=== PATIENT | male | born 1970 | race Caucasian/White ===

== ENCOUNTER 2016-06-09 15:17 | Emergency (ER) | payer BC ==
[2016-06-09 16:46] VITALS: BP 130/89
--- NOTE | 2016-06-09 17:41 | RAD ---
Indication: Right shoulder pain. 3 views of the right shoulder demonstrate AC joint arthritis. No fracture is noted. Bone or joint abnormality is noted. IMPRESSION: No fracture of the right shoulder is noted.
--- NOTE | 2016-06-09 18:25 | UC ---
Shoulder Pain HPI - HPI Summary HPI Summary: HISTORY OF RIGHT SHOULDER TENDONITIS SINCE ADOLESCENCE. FOUR DAYS TENDONITIS HAS BEEN WORSENING ESPECIALLY WITH LATERAL MOVEMENT. NO SPECIFIC INJURY NOTED. - History of Current Complaint Chief Complaint: UCUpperExtremity Stated Complaint: ARM INJURY Time Seen by Provider: 06/09/16 16:42 Hx Obtained From: Patient Onset/Duration: Gradual Onset, Lasting Weeks, Worse Since - LAST FOUR DAYS Timing: Days Severity Initially: Mild Severity Currently: Severe Location Of Pain: Is Discrete @ - RIGHT SHOUDLER Pain Intensity: 7 Pain Scale Used: 0-10 Numeric Character: Dull, Aching, Spasmodic, Stiffness Aggravating Factor(s): Movement, Lifting, Flexion, Extension, External Rotation Alleviating Factor(s): Rest, Ice Related History: Dominant Hand Right - Risk Factors Non-Orthopedic Risk Factor: Negative DVT Risk Factors: Negative - Allergies/Home Medications Allergies/Adverse Reactions: Allergies Allergy/AdvReac Type Severity Reaction Status Date / Time No Known Allergies Allergy Verified 02/18/16 11:44 PMH/Surg Hx/FS Hx/Imm Hx Previously Healthy: Yes Endocrine History Of: Denies: Diabetes, Thyroid Disease Cardiovascular History Of: Reports: Hypertension Denies: Cardiac Disorders, Pacemaker/ICD, Congestive Heart Failure, Deep Vein Thrombosis Respiratory History Of: Denies: COPD, Asthma, Pneumonia, Pulmonary Embolism GI/ History Of: Reports: Kidney Stones, Renal Disease - Dx'd with IGA nephropathy; dialysis in 2007; dec 2009 right transplant Denies: Ulcer, Gastrointestinal Bleed, Gall Bladder Disease Neurological History Of: Denies: TIA, CVA, Dementia, Seizures, Migraine Psychological History Of: Reports: Anxiety, Depression Denies: Bipolar Disorder, Schizophrenia Cancer History Of: Denies: Lung Cancer Other History Of: Negative For: Anticoagulant Therapy - Surgical History Surgical History: Yes Surgery Procedure, Year, and Place: kidney transplant, 2009. Fistula, July 2008. Hemo-catheter, January 2008. Peritoneal catheter January 2008. Kidney biopsy 2006. - Family History Known Family History: Negative: Renal Disease, Blood Disorder - Social History Occupation: Employed Full-time Lives: With Family Alcohol Use: Occasionally Alcohol Amount: 5-7 DRINKS/WEEK Substance Use Type: Marijuana Smoking Status (MU): Former Smoker Type: Cigarettes Amount Used/How Often: 1/2 ppd Have You Smoked in the Last Year: No When Did the Patient Quit Smoking/Using Tobacco: december 2013 - Immunization History Most Recent Tetanus Shot: 2011 Vaccination Up to Date: Yes Review of Systems Constitutional: Negative Skin: Negative Eyes: Negative ENT: Negative Respiratory: Negative Cardiovascular: Negative Gastrointestinal: Negative Genitourinary: Negative Motor: Negative Neurovascular: Negative Musculoskeletal: Arthralgia, Decreased ROM, Myalgia Neurological: Negative Psychological: Negative All Other Systems Reviewed And Are Negative: Yes Physical Exam Triage Information Reviewed: Yes Appearance: Well-Appearing, Well-Nourished, Pain Distress Vital Signs: Initial Vital Signs Temp 98.7 F 06/09/16 16:42 Pulse 64 06/09/16 16:42 Resp 18 06/09/16 16:42 BP 130/89 06/09/16 16:42 Pulse Ox 98 06/09/16 16:42 Vital Signs Reviewed: Yes Eye Exam: Normal ENT Exam: Normal ENT: Positive: Normal ENT inspection, Hearing grossly normal, TMs normal Dental Exam: Normal Neck exam: Normal Neck: Positive: Supple, Nontender, No Lymphadenopathy Respiratory Exam: Normal Respiratory: Positive: Chest non-tender, Lungs clear, Normal breath sounds, No respiratory distress, No accessory muscle use, Respiratory distress Cardiovascular Exam: Normal Cardiovascular: Positive: RRR, No Murmur, Pulses Normal Abdominal Exam: Normal Abdomen Description: Positive: Nontender, No Organomegaly Musculoskeletal: Positive: No Edema, Strength Limited @ - RIGHT SHOULDER LATERAL EXTENSION, ROM Limited @ - RIGHT SHOULDER LATERAL EXTENSION Neurological Exam: Normal Psychological Exam: Normal Skin Exam: Normal Shoulder Course/Dx - Differential Dx/Diagnosis Differential Diagnosis/HQI/PQRI: Fracture (Closed), Sprain, Strain Provider Diagnoses: RIGHT SHOUDLER TENDONITIS. RIGHT AC JOINT ARTHRITIS Discharge - Discharge Plan Condition: Stable Disposition: HOME Prescriptions: HYDROcodone/ACETAMIN 5-325 MG* [[place] 5-325 TAB*] 1 tab PO Q8H PRN #12 tab MDD THREE TABS PRN Reason: Pain Patient Education Materials: Osteoarthritis (ED), Tendinitis (ED), Shoulder Pain (ED) Referrals: Deneen Chung MD [Medical Doctor] - Carroll Pollard MD [Primary Care Provider] - Additional Instructions: PHYSICAL THERAPY REFERRAL: You have been prescribed physical therapy. Treatments may include stretching, exercise, application of heat or cold, and other modalities. After an injury, PT can reduce swelling and pain. In recovery, PT is used to restore mobility and strength. Your specific treatment goals are: Reduction of Swelling (EGS, US, ice as needed) ___x__ Pain Reduction (EGS, US, ice as needed) TENS Pack Fitting and Instruction Wound Hydrotherapy ___x__ Preservation of Mobility ___x__ Synagogue of Mobility ____x_ Strength Synagogue ____x_ Work or Sports Hardening This instruction sheet also serves as your PHYSICAL THERAPY REFERRAL! Please take it with you to the therapist, so he/she will be aware of your diagnosis and treatment plan. You may see the physical therapist of your choice for these treatments, but may wish to check with your insurance to be sure the provider you select is covered. It's important to see the doctor to whom you have been referred for follow up.
== END 2016-06-09 18:07 | disposition home or self-care (01) ==
LOC: UCEAST 15:17
DX: M19.011 Primary osteoarthritis, right shoulder (principal); M75.91 Shoulder lesion, unspecified, right shoulder; Z94.0 Kidney transplant status; F10.99 Alcohol use, unspecified with unspecified alcohol-induced disorder; Z87.891 Personal history of nicotine dependence
CPT/HCPCS: 99213; G0463

== ENCOUNTER 2016-12-10 09:02 | Emergency (ER) | payer BC ==
[2016-12-10 09:15] VITALS: BP 117/81
--- NOTE | 2016-12-10 15:38 | UC ---
Jessie Campos Alfonso, scribed for Dariela Chong MD on 12/10/16 at 0937 . General HPI - HPI Summary HPI Summary: This patient is a 46 year old M presenting to [facility] with a chief complaint of a cold since last week. He reports the CC is worse since two days ago. Symptoms alleviated by nothing. Patient reports productive cough (green phlegm), and sinus congestion. Patient denies diarrhea, and ear pain. PMHx of kidney transplant 2009. Patients medications reviewed this visit. Patients allergies reviewed this visit. - History of Current Complaint Chief Complaint: UCRespiratory Stated Complaint: RESP ISSUE Time Seen by Provider: 12/10/16 09:25 Hx Obtained From: Patient Onset/Duration: Sudden Onset, Lasting Weeks - 1, Worse Since - 2 days Timing: Constant Onset Severity: Moderate Current Severity: Moderate Character: "cold" Alleviating: Nothing Associated Signs & Symptoms: Positive: Other - Patient reports productive cough (green phlegm), and sinus congestion. Patient denies diarrhea, and ear pain. - Allergy/Home Medications Allergies/Adverse Reactions: Allergies Allergy/AdvReac Type Severity Reaction Status Date / Time No Known Allergies Allergy Verified 12/10/16 09:10 Home Medications: Home Medications [id number] [Theraflu Cold & Cough 10-20-20 mg] 12/10/16 [ History] PMH/Surg Hx/FS Hx/Imm Hx Other History Of: Negative For: Anticoagulant Therapy - Surgical History Surgical History: Yes Surgery Procedure, Year, and Place: kidney transplant, 2009. Fistula, July 2008. Hemo-catheter, January 2008. Peritoneal catheter January 2008. Kidney biopsy 2006. - Family History Known Family History: Negative: Renal Disease, Blood Disorder - Social History Alcohol Use: None Alcohol Amount: 5-7 DRINKS/WEEK Substance Use Type: Marijuana Smoking Status (MU): Former Smoker Type: Cigarettes Amount Used/How Often: 1/2 ppd Have You Smoked in the Last Year: No When Did the Patient Quit Smoking/Using Tobacco: december 2013 - Immunization History Most Recent Tetanus Shot: 2010 Vaccination Up to Date: Yes Review of Systems Constitutional: Negative Skin: Negative Eyes: Negative ENT: Sinus Congestion, Other - Negative ear ache. Respiratory: Cough Cardiovascular: Negative Gastrointestinal: Negative, Other - Negative diarrhea. Genitourinary: Negative Motor: Negative Neurovascular: Negative Musculoskeletal: Negative Neurological: Negative Psychological: Negative All Other Systems Reviewed And Are Negative: Yes Physical Exam Triage Information Reviewed: Yes Appearance: Well-Nourished Vital Signs: Initial Vital Signs Temp 98 F 12/10/16 09:12 Pulse 81 12/10/16 09:12 Resp 16 12/10/16 09:12 BP 117/81 12/10/16 09:12 Pulse Ox 92 12/10/16 09:12 Vital Signs Reviewed: Yes Eye Exam: Normal ENT: Positive: Other: - Normal TM. Uvula slight edematous. Airway intact. Neck exam: Normal Neck: Positive: No Lymphadenopathy Respiratory Exam: Normal Respiratory: Positive: Chest non-tender, Wheezing - expiratory wheezing,mild, Other: - no dyspnea, no tachypnea, normal respiratory rate Cardiovascular Exam: Normal Cardiovascular: Positive: RRR, No Murmur, Pulses Normal, Brisk Capillary Refill , Other: - good general skin color, good capillary refill Abdomen Description: Positive: Nontender, No Organomegaly, Soft Bowel Sounds: Positive: Present Musculoskeletal Exam: Normal Musculoskeletal: Positive: Strength Intact Neurological Exam: Normal Psychological: Positive: Age Appropriate Behavior Skin Exam: Normal Course/Dx - Course Course Of Treatment: This patient is a 46 year old M presenting to [facility] with a chief complaint of a cold since last week. He reports the CC is worse since two days ago. Symptoms alleviated by nothing. Patient reports productive cough ( green phlegm), and sinus congestion. Patient denies diarrhea, and ear pain. PMHx of kidney transplant 2009. Patients medications reviewed this visit. Patients allergies reviewed this visit. Pt instructed to up with primary care provider within two weeks for high blood pressure noted today at 117/81. 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 He will take a single dose prednisone prior to event. Will use albuterol as needed (recommend at least 2x / day while sick). Rx azithromycin. Patient will be discharged with prescription and follow up from PCP. The patient is agreeable with this plan. - Differential Dx - Multi-Symptom Provider Diagnoses: Acute bronchitis with wheezing Discharge - Discharge Plan Condition: Stable Disposition: HOME Prescriptions: Albuterol HFA INHALER* [Ventolin HFA Inhaler*] 1 puff INH Q4H PRN #1 mdi PRN Reason: Wheezing Azithromyxin SHRAVAN (NF) [Z-Shravan (Zithromax) 250 mg tabs #6] 2 tab PO .TODAY, THEN 1 DAILY #6 tab predniSONE TAB* [Deltasone TAB*] 20 mg PO DAILY #3 tab Patient Education Materials: Acute Bronchitis (ED) Referrals: Carroll Pollard MD [Primary Care Provider] - 1 Week Additional Instructions: Follow up with your primary care provider within two weeks for high blood pressure noted today at 117/81. The documentation as recorded by the Jessie remy Alfonso accurately reflects the service I personally performed and the decisions made by me, Dariela Chong MD.
== END 2016-12-10 10:01 | disposition home or self-care (01) ==
LOC: UCEAST 09:02
DX: J20.9 Acute bronchitis, unspecified (principal); F12.10 Cannabis abuse, uncomplicated
CPT/HCPCS: 99212; G0463

== ENCOUNTER 2017-02-12 10:11 | Emergency (ER) | payer BC ==
[2017-02-12 10:23] VITALS: BP 103/71
--- NOTE | 2017-02-12 10:55 | UC ---
Respiratory Complaint HPI - HPI Summary HPI Summary: Cough and chest congestion similar symptoms to a couple of months ago when DX with Bronchitis improved with Zithromax and albuterol - History of Current Complaint Chief Complaint: UCGeneralIllness Stated Complaint: COLD,COUGH Time Seen by Provider: 02/12/17 10:45 Hx Obtained From: Patient Onset/Duration: Gradual Onset, Lasting Weeks - 2, Still Present Timing: Constant Severity Initially: Mild Severity Currently: Moderate Pain Intensity: 6 Pain Scale Used: 0-10 Numeric Character: Cough: Productive Aggravating Factors: Nothing Alleviating Factors: Nothing Associated Signs And Symptoms: Positive: Negative - Allergies/Home Medications Allergies/Adverse Reactions: Allergies Allergy/AdvReac Type Severity Reaction Status Date / Time No Known Allergies Allergy Verified 02/12/17 10:16 PMH/Surg Hx/FS Hx/Imm Hx Previously Healthy: No Cardiovascular History: Hypertension Other History Of: Negative For: Anticoagulant Therapy - Surgical History Surgical History: Yes Surgery Procedure, Year, and Place: kidney transplant, 2009. Fistula, July 2008. Hemo-catheter, January 2008. Peritoneal catheter January 2008. Kidney biopsy 2006. - Family History Known Family History: Positive: None Negative: Renal Disease, Blood Disorder - Social History Occupation: Employed Full-time Lives: With Family Alcohol Use: Weekly Alcohol Amount: 5-7 DRINKS/WEEK Substance Use Type: Marijuana Substance Use Comment - Amount & Last Used: occasionally Smoking Status (MU): Current Some Day Smoker Type: Cigarettes Amount Used/How Often: 1/2 ppd Have You Smoked in the Last Year: No When Did the Patient Quit Smoking/Using Tobacco: december 2013 - Immunization History Most Recent Influenza Vaccination: 2016 Most Recent Tetanus Shot: 2010 Vaccination Up to Date: Yes Review of Systems Constitutional: Negative Skin: Negative Eyes: Negative ENT: Negative Respiratory: Cough Cardiovascular: Negative Gastrointestinal: Negative Genitourinary: Negative Motor: Negative Neurovascular: Negative Musculoskeletal: Negative Neurological: Negative Psychological: Negative Is Patient Immunocompromised?: No All Other Systems Reviewed And Are Negative: Yes Physical Exam Triage Information Reviewed: Yes Appearance: No Pain Distress, Well-Nourished, Ill-Appearing - mild Vital Signs: Initial Vital Signs Temp 98.6 F 02/12/17 10:18 Pulse 63 02/12/17 10:18 Resp 16 02/12/17 10:18 BP 103/71 02/12/17 10:18 Pulse Ox 99 02/12/17 10:18 Vital Signs Reviewed: Yes Eye Exam: Normal Eyes: Positive: Conjunctiva Clear ENT Exam: Normal ENT: Positive: Normal ENT inspection, Hearing grossly normal, Pharynx normal, TMs normal. Negative: Nasal congestion, Nasal drainage, Trismus, Muffled/ hoarse voice Dental Exam: Normal Neck exam: Normal Neck: Positive: Supple, Nontender Respiratory Exam: Normal Respiratory: Positive: Chest non-tender, Lungs clear, Normal breath sounds, No respiratory distress, No accessory muscle use Cardiovascular Exam: Normal Cardiovascular: Positive: RRR, No Murmur, Pulses Normal, Brisk Capillary Refill Musculoskeletal Exam: Normal Musculoskeletal: Positive: Strength Intact, ROM Intact Neurological Exam: Normal Neurological: Positive: Alert, Muscle Tone Normal Psychological Exam: Normal Skin Exam: Normal UC Diagnostic Evaluation - Laboratory O2 Sat by Pulse Oximetry: 99 Respiratory Course/Dx - Course Course Of Treatment: Continue OTC symptoms relief, albuterol q4-6 hours prn cough, start antibiodics if no relief in 3-5 days - Differential Dx/Diagnosis Provider Diagnoses: Acute Bronchititis Discharge - Discharge Plan Condition: Stable Disposition: HOME Prescriptions: Albuterol HFA INHALER* [Ventolin HFA Inhaler*] 2 puff INH Q4H PRN #1 mdi PRN Reason: cough Azithromycin TAB* [Zithromax TAB (Z-DAVID) 250 mg #6 tabs] 2 tab PO .TODAY, THEN 1 DAILY #1 david Patient Education Materials: Acute Bronchitis (ED), Acute Cough (ED) Referrals: Carroll Pollard MD [Primary Care Provider] - If Needed Additional Instructions: May resolve with out use of antibiotics---Please use albuterol and otc medications prior to starting antibiotics
== END 2017-02-12 11:15 | disposition home or self-care (01) ==
LOC: UCEAST 10:11
DX: J20.9 Acute bronchitis, unspecified (principal); F17.210 Nicotine dependence, cigarettes, uncomplicated; I10 Essential (primary) hypertension; F12.10 Cannabis abuse, uncomplicated
CPT/HCPCS: 99212; G0463

== ENCOUNTER 2017-05-26 13:17 | Emergency (ER) | payer BC ==
[2017-05-26 13:45] VITALS: BP 120/79
--- NOTE | 2017-05-26 13:52 | UC ---
Lower Extremity/Ankle HPI - HPI Summary HPI Summary: Pt presents with right pinky toe pain that began this morning. He tells me that he has been sick with cold symptoms recently, so he took some nyquill last night and this usually "knocks him out". He doesn't recall hitting or stubbing his toe, but thinks it's possible and just doesn't remember. He is ambulating without assistance, but with pain. - History of Current Complaint Hx Obtained From: Patient Onset/Duration: Sudden Onset Severity Initially: Moderate Severity Currently: Moderate Pain Intensity: 7 Pain Scale Used: 0-10 Numeric Aggravating Factor(s): Standing, Ambulation <Brennan Sow - Last Filed: 05/26/17 14:10> <Lili Del Rosario - Last Filed: 05/26/17 14:31> - History of Current Complaint Chief Complaint: UCLowerExtremity Stated Complaint: TOE INJURY Time Seen by Provider: 05/26/17 13:36 - Allergies/Home Medications Allergies/Adverse Reactions: Allergies Allergy/AdvReac Type Severity Reaction Status Date / Time No Known Allergies Allergy Verified 05/26/17 13:35 PMH/Surg Hx/FS Hx/Imm Hx Previously Healthy: Yes Cardiovascular History: Cardiac Disease, Hypertension Other History Of: Negative For: Anticoagulant Therapy - Surgical History Surgical History: Yes Surgery Procedure, Year, and Place: kidney transplant, 2009. Fistula, July 2008. Hemo-catheter, January 2008. Peritoneal catheter January 2008. Kidney biopsy 2006. - Family History Known Family History: Positive: None Negative: Renal Disease, Blood Disorder - Social History Alcohol Use: Weekly Alcohol Amount: 5-7 DRINKS/WEEK Substance Use Type: Marijuana Substance Use Comment - Amount & Last Used: occasionally Smoking Status (MU): Current Some Day Smoker Type: Cigarettes Amount Used/How Often: 5-7 cig/ day Have You Smoked in the Last Year: No When Did the Patient Quit Smoking/Using Tobacco: december 2013 - Immunization History Most Recent Influenza Vaccination: 2016 Most Recent Tetanus Shot: 2010 Vaccination Up to Date: Yes <Brennan Sow - Last Filed: 05/26/17 14:10> Review of Systems Constitutional: Negative Skin: Negative Respiratory: Negative Cardiovascular: Negative Gastrointestinal: Negative Neurovascular: Negative Musculoskeletal: Other: - Right pinky toe pain Neurological: Negative Psychological: Negative All Other Systems Reviewed And Are Negative: Yes <Brennan Sow - Last Filed: 05/26/17 14:10> Physical Exam Triage Information Reviewed: Yes Appearance: Well-Appearing, No Pain Distress, Well-Nourished Vital Signs: Initial Vital Signs Temp 99.2 F 05/26/17 13:38 Pulse 79 05/26/17 13:38 Resp 18 05/26/17 13:38 BP 120/79 05/26/17 13:38 Pulse Ox 98 05/26/17 13:38 Vital Signs Reviewed: Yes Respiratory: Positive: Lungs clear, Normal breath sounds, No respiratory distress Cardiovascular: Positive: RRR, No Murmur, Pulses Normal - DP and TP right, Brisk Capillary Refill - Right pinky toe Musculoskeletal: Positive: Strength Intact - Right pinky toe and foot, ROM Intact - Right pinky toe and foot, No Edema - Right pinky toe or foot, Other: - Mild TTP over distal right pinky toe. No obvious bony deformities. Neurological: Positive: Alert, Other: - Sensations intact right pinky toe Psychological: Positive: Age Appropriate Behavior Skin: Positive: Other - No ecchymosis or erythema of right pinky toe or foot.. Negative: rashes <Brennan Sow - Last Filed: 05/26/17 14:10> Vital Signs: Initial Vital Signs Temp 99.2 F 05/26/17 13:38 Pulse 79 05/26/17 13:38 Resp 18 05/26/17 13:38 BP 120/79 05/26/17 13:38 Pulse Ox 98 05/26/17 13:38 <Lili Del Rosario - Last Filed: 05/26/17 14:31> Lower Extremity Course/Dx - Course Course Of Treatment: Toe XR: IMPRESSION: NO ACUTE OSSEOUS INJURY. IF SYMPTOMS PERSIST, RECOMMEND REPEAT IMAGING. - Differential Dx/Diagnosis Provider Diagnoses: Right toe contusion <Brennan Sow - Last Filed: 05/26/17 14:10> Discharge <Brennan Sow - Last Filed: 05/26/17 14:10> <Lili Del Rosario - Last Filed: 05/26/17 14:31> - Discharge Plan Condition: Stable Disposition: HOME Patient Education Materials: Foot Contusion (ED) Referrals: Carroll Pollard MD [Primary Care Provider] - Additional Instructions: If you develop a fever, shortness of breath, chest pain, new or worsening symptoms - please call your PCP or go to the ED. 1) Apply ice to the toe and keep it taped to the toe beside it for comfort 2) May take tylenol OTC for pain Attestation Statement User Type: Provider - I was available for consult. This patient was seen by the DRE. The patient was not presented to, seen by, or examined by me. [place] <Lili Del Rosario - Last Filed: 05/26/17 14:31>
--- NOTE | 2017-05-26 14:13 | RAD ---
HISTORY: Right fifth toe pain, injury COMPARISONS: None VIEWS: 3, Frontal, lateral, and oblique views of the fifth digit of the right foot FINDINGS: BONE DENSITY: Normal. BONES: There is no displaced fracture. JOINTS: There is no arthropathy. There is fusion across the fifth DIP joint. ALIGNMENT: There is no dislocation. SOFT TISSUES: Unremarkable. OTHER FINDINGS: None. IMPRESSION: NO ACUTE OSSEOUS INJURY. IF SYMPTOMS PERSIST, RECOMMEND REPEAT IMAGING.
== END 2017-05-26 14:26 | disposition home or self-care (01) ==
LOC: UCEAST 13:17
DX: Z87.891 Personal history of nicotine dependence (principal); S90.121A Contusion of right lesser toe(s) without damage to nail, initial encounter; X58.XXXA Exposure to other specified factors, initial encounter; Y93.9 Activity, unspecified; Y92.9 Unspecified place or not applicable
CPT/HCPCS: 99211; G0463

== ENCOUNTER 2017-05-31 11:17 | Emergency (ER) | payer BC ==
--- NOTE | 2017-05-31 12:41 | UC ---
Lower Extremity/Ankle HPI - HPI Summary HPI Summary: 46 y/o male presents to the urgent care for recheck of RT base of pinky toe injury that happened on 05/25/2017. Pt does not recalled how it happened. He was here at the clinic and X-ray was negative and Rx Tylenol PO to alleviate symptoms. Pt states pain and swelling is worsen, specially when he walks. Pain is 8/10 w/o any radiation. Pt states now the base of his RT pinky is red. Pt denies numbness or tingling sensation over toes or foot. he can move toes, denies SOB, chest pain, calf pain, abdominal pain, N/V/D. Hx of gout. - History of Current Complaint Stated Complaint: RECHECK OF TOE INJURY Time Seen by Provider: 05/31/17 12:38 Hx Obtained From: Patient Onset/Duration: Sudden Onset, Lasting Weeks - 1 week Severity Initially: Mild Severity Currently: Moderate Pain Intensity: 8 Pain Scale Used: 0-10 Numeric Aggravating Factor(s): Ambulation Alleviating Factor(s): Rest, Ice - Risk Factors Gout Risk Factors: Negative, Age Over 40, Male DVT Risk Factors: Negative Septic Arthritis Risk Factor: Negative - Allergies/Home Medications Allergies/Adverse Reactions: Allergies Allergy/AdvReac Type Severity Reaction Status Date / Time No Known Allergies Allergy Verified 05/31/17 12:01 PMH/Surg Hx/FS Hx/Imm Hx Previously Healthy: Yes Other Endocrine History: Vitamin D defficiency Cardiovascular History: Hypertension Psychological History: Depression Other History Of: Negative For: Anticoagulant Therapy - Surgical History Surgical History: Yes Surgery Procedure, Year, and Place: kidney transplant, 2009. Fistula, July 2008. Hemo-catheter, January 2008. Peritoneal catheter January 2008. Kidney biopsy 2006. - Family History Known Family History: Positive: Hypertension Negative: Renal Disease, Blood Disorder - Social History Occupation: Employed Full-time Lives: With Family Alcohol Use: Weekly Alcohol Amount: 5-7 DRINKS/WEEK Substance Use Type: Marijuana Substance Use Comment - Amount & Last Used: occasionally Smoking Status (MU): Current Some Day Smoker Type: Cigarettes Amount Used/How Often: 5-7 cig/ day Have You Smoked in the Last Year: No When Did the Patient Quit Smoking/Using Tobacco: december 2013 - Immunization History Most Recent Influenza Vaccination: 2016 Most Recent Tetanus Shot: 2010 Vaccination Up to Date: Yes Review of Systems Constitutional: Negative Skin: Negative Eyes: Negative ENT: Negative Respiratory: Negative Cardiovascular: Negative Gastrointestinal: Negative Genitourinary: Negative Motor: Negative Neurovascular: Negative Musculoskeletal: Other: - Base of Pinky toe pain and swelling Neurological: Negative Psychological: Negative Is Patient Immunocompromised?: No All Other Systems Reviewed And Are Negative: Yes Physical Exam Triage Information Reviewed: Yes - Additional Comments Vital Signs Reviewed: Yes General : well developed, well nourished male adolescent w/o any apparent distress Eyes: Positive: Conjunctiva Clear - PERRLA, EOMI ENT: Positive: Normal ENT inspection, Hearing grossly normal, Pharynx normal, TMs normal Neck: Positive: Supple, Nontender, No Lymphadenopathy Respiratory: Positive: Chest non-tender, Lungs clear, Normal breath sounds, No respiratory distress Cardiovascular: Positive: RRR, No Murmur, Pulses Normal Abdomen Description: Positive: Nontender, No Organomegaly, Soft. Negative: CVA Tenderness (R), CVA Tenderness (L) Bowel Sounds: Positive: Present Musculoskeletal: Positive: Strength Intact, ROM Intact, No Edema, RT Foot/Toes: Pt is able to bear weight but ambulate with mild limping. RT foot :No surface trauma, ecchymosis, erythema, lesions, ulcers or break in skin integrity. The R foot is without obvious asymmetry or deformity when compared to the L foot. No bony step-off, No tenderness to palpation over toes, point tenderness over the dorsal side at base of the 5th metatarsal and sole at the same level, w/ mild swelling,no tenderness of hindfoot, Decrease plantar/dorsiflexion, due to pain. Distal motor and neurovascular status are intact. Neurological Exam: Normal Psychological Exam: Normal Skin Exam: Normal Lower Extremity Course/Dx - Course Course Of Treatment: 46 y/o male presents to the urgent care for recheck of RT base of pinky toe injury that happened on 05/25/2017. Pt does not recalled how it happened. He was here at the clinic and X-ray was negative and Rx Tylenol PO to alleviate symptoms. Pt states pain and swelling is worsen, specially when he walks. Pain is 5/10 w/o any radiation. Pt states now the base of his RT pinky is red. Pt denies numbness or tingling sensation over toes or foot. he can move toes, denies SOB, chest pain, calf pain, abdominal pain, N/V/D. Hx of gout. Hx obtained. Pt w/ point tenderness and swelling at the base of fifth metatarsal on examination. Last foot X-ray about 1 week ago was negative. RT foot X-ray ordered to r/o stress fracture, Impression:No acute osseous injury observed as per radiologist. Pt's foot immobilized with mitch-bandage and given a post-op shoe to avoid flexion. Advised RICE, and Rx Vicodin PO for pain, If not improvement of symptoms to f/u with Orthopedic DR Moody in 1 week for further evaluation and treatment. Pt understood and agreed with D/C instructions - Differential Dx/Diagnosis Differential Diagnosis/HQI/PQRI: Arthritis, Contusion, Fracture (Closed), Gout, Sprain, Strain, Tendonitis Provider Diagnoses: 1-RT foot pain at base of 5th metatarsal s/p injury Discharge - Discharge Plan Condition: Stable Disposition: HOME Prescriptions: Hydrocodone/Acetaminophen [Vicodin 5-300 mg] 1 tab PO Q6HR PRN #12 tab MDD 4g/ day PRN Reason: Pain Patient Education Materials: Foot Contusion (ED) Referrals: Chuy Moody MD [Medical Doctor] - 1 Week Carroll Pollard MD [Primary Care Provider] - 1 Week Additional Instructions: 1-Please take medications as directed to alleviate pain and swelling. Take Tylenol PO q4-6hr prn if pain continues after 3 days 2-Please apply ice, keep your foot immobilized with the Mitch bandage and post-op shoe. Avoid strenuous exercise or standing for long periods of time 3- Please f/u with your Orthopedic Dr Moody in 1 week if not improvement of symptoms for further evaluation and treatment.
[2017-05-31] MEDS ORDERED: Naproxen TAB* 250 MG PO ONE (12:49)
[2017-05-31 12:54] VITALS: BP 119/84
--- NOTE | 2017-05-31 13:27 | RAD ---
HISTORY: Right fifth metatarsal pain and injury COMPARISONS: May 26, 2017 VIEWS: 3, Frontal, lateral, and oblique views of the right foot FINDINGS: BONE DENSITY: Normal. BONES: There is no displaced fracture. There is no appreciable erosion or periosteal reaction. JOINTS: There is no arthropathy. ALIGNMENT: There is no dislocation. SOFT TISSUES: Unremarkable. OTHER FINDINGS: None. IMPRESSION: NO ACUTE OSSEOUS INJURY. IF SYMPTOMS PERSIST, RECOMMEND REPEAT IMAGING.
== END 2017-05-31 13:54 | disposition home or self-care (01) ==
LOC: UCEAST 11:17
DX: M25.571 Pain in right ankle and joints of right foot (principal); E55.9 Vitamin D deficiency, unspecified; I10 Essential (primary) hypertension; F32.9 Major depressive disorder, single episode, unspecified; Z94.0 Kidney transplant status; F12.90 Cannabis use, unspecified, uncomplicated; Z72.0 Tobacco use
CPT/HCPCS: 99213; A9270-GY; G0463

== ENCOUNTER 2017-06-26 15:56 | Emergency (ER) | payer BC ==
[2017-06-26 16:08] VITALS: BP 125/67
--- NOTE | 2017-06-26 17:04 | UC ---
Rectal Pain HPI - HPI Summary HPI Summary: 46 yo WM c/o "prolapsed hemorrhoid" x 3 days, noticed it 3 days ago, denies rectal bleeding but c/o discomfort - History Of Current Complaint Chief Complaint: UCGU Stated Complaint: MALE PROBLEMS Time Seen by Provider: 06/26/17 16:35 Hx Obtained From: Patient Onset/Duration: Lasting Days Severity Initially: Moderate Severity Currently: Moderate Pain Intensity: 6 Location Of Pain: Anal Aggravating Factor(s): Bowel Movement, Sitting Alleviating Factor(s): Nothing Associated Signs And Symptoms: Positive: Negative. Negative: Rectal Bleeding - Allergies/Home Medications Allergies/Adverse Reactions: Allergies Allergy/AdvReac Type Severity Reaction Status Date / Time No Known Allergies Allergy Verified 06/26/17 16:08 PMH/Surg Hx/FS Hx/Imm Hx - Additional Past Medical History Additional PMH: renal xplant pt 7yrs ago on immunosupressants, HTN Other History Of: Negative For: Anticoagulant Therapy - Surgical History Surgical History: Yes Surgery Procedure, Year, and Place: kidney transplant, 2009. Fistula, July 2008. Hemo-catheter, January 2008. Peritoneal catheter January 2008. Kidney biopsy 2006. - Family History Known Family History: Positive: None, Hypertension Negative: Renal Disease, Blood Disorder - Social History Alcohol Use: Weekly Alcohol Amount: 5-7 DRINKS/WEEK Substance Use Type: Marijuana Substance Use Comment - Amount & Last Used: occasionally Smoking Status (MU): Former Smoker Type: Cigarettes Amount Used/How Often: 5-7 cig/ day Have You Smoked in the Last Year: No When Did the Patient Quit Smoking/Using Tobacco: december 2013 - Immunization History Most Recent Influenza Vaccination: 2016 Most Recent Tetanus Shot: 2010 Vaccination Up to Date: Yes Review of Systems Constitutional: Negative Skin: Negative Eyes: Negative ENT: Negative Respiratory: Negative Cardiovascular: Negative Gastrointestinal: Negative Genitourinary: Negative Motor: Negative Neurovascular: Negative Musculoskeletal: Negative Neurological: Negative Psychological: Negative All Other Systems Reviewed And Are Negative: Yes - Comments Additional Review of Systems Comments: Rectum-hemorrhoids Physical Exam Triage Information Reviewed: Yes Vital Signs: Initial Vital Signs Temp 37.3 C 06/26/17 16:04 Pulse 87 06/26/17 16:04 Resp 18 06/26/17 16:04 BP 125/67 06/26/17 16:04 Pulse Ox 99 06/26/17 16:04 Eye Exam: Normal ENT Exam: Normal Dental Exam: Normal Neck exam: Normal Neck: Positive: 1 Respiratory Exam: Normal Cardiovascular Exam: Normal Abdominal Exam: Normal Musculoskeletal Exam: Normal Neurological Exam: Normal Psychological Exam: Normal Skin Exam: Normal Skin: Positive: Other - prolapsed internal hemorrhoid at 3-4 O'clock position with a diameter about 2cm and mild purpurlish color in some areas, small 0.5cm x 0.5cm external hemorrhoid at 2 O'clock position Rectal Pain Course/Dx - Course Course Of Treatment: referred to general surgeon for further intervention for possible banding - Differential Dx/Diagnosis Differential Diagnosis/HQI/PQRI: Hemorrhoid(s) Provider Diagnoses: internal hemorrhoids. External hemorrhoids Discharge - Discharge Plan Condition: Stable Disposition: HOME Patient Education Materials: Hemorrhoids (ED) Referrals: Gavin De La Rosa MD [Medical Doctor] - Carroll Pollard MD [Primary Care Provider] - Additional Instructions: please follow up with general surgery for further evaluation
== END 2017-06-26 17:04 | disposition home or self-care (01) ==
LOC: UCEAST 15:56
DX: K64.8 Other hemorrhoids (principal); K64.4 Residual hemorrhoidal skin tags
CPT/HCPCS: 99211; G0463

== ENCOUNTER 2018-04-28 07:09 | Emergency (ER) | payer BC ==
[2018-04-28] MEDS: methylPREDNISolone 125 MG* 2 ML VIAL IV ONE (07:32)
[2018-04-28] MEDS: Famotidine IV* 10 MG/ML 2 ML (20 mg) IV SLOW PU ONE (07:35)
[2018-04-28] MEDS: diPHENhydraMINE IV* 50 MG/ML 1 ml VIAL (BENADRYL) IV ONE (07:38)
--- NOTE | 2018-04-28 08:02 | UC ---
Allergic Reaction HPI - HPI Summary HPI Summary: 47-year-old male comes to clinic today with a chief complaint of swollen tongue and difficulty swallowing. He woke little more than an hour ago in the tip of his tongue was swollen. Gradually progressing to the back of his tongue. Denies any difficulty breathing as he's primarily breathing through his nose. He is on lisinopril twice a day his last dose was last evening. No other swelling or rash. - History of Current Complaint Chief Complaint: UCRespiratory Stated Complaint: SWOLLEN TONGUE Time Seen by Provider: 04/28/18 07:20 Pain Intensity: 0 - Allergies/Home Medications Allergies/Adverse Reactions: Allergies Allergy/AdvReac Type Severity Reaction Status Date / Time No Known Allergies Allergy Verified 04/28/18 07:16 Home Medications: Home Medications Activated Charcoal [Charcoal] 200 mg PO DAILY 04/28/18 [History Confirmed ] Cholecalciferol TAB* [Vitamin D TAB*] 1,000 unit PO DAILY 04/28/18 [History Confirmed 04/28/18] Gabapentin CAP(*) [Neurontin 300 CAP(*)] 300 mg PO BEDTIME 04/28/18 [History Confirmed 04/28/18] Melatonin (NF) 3 mg PO BEDTIME 04/28/18 [History Confirmed 04/28/18] PMH/Surg Hx/FS Hx/Imm Hx Previously Healthy: Yes - KIDNEY TRANSPLANT 2009 Cardiovascular History: Hypertension Respiratory History: Asthma Other History Of: Negative For: Anticoagulant Therapy - Surgical History Surgical History: Yes Surgery Procedure, Year, and Place: kidney transplant, 2009. Fistula, July 2008. Hemo-catheter, January 2008. Peritoneal catheter January 2008. Kidney biopsy 2006. - Family History Known Family History: Positive: None, Hypertension Negative: Renal Disease, Blood Disorder - Social History Alcohol Use: Occasionally Alcohol Amount: 5-7 DRINKS/WEEK Substance Use Type: Marijuana Substance Use Comment - Amount & Last Used: occasionally Smoking Status (MU): Former Smoker Type: Cigarettes Amount Used/How Often: 5-7 cig/ day Have You Smoked in the Last Year: No When Did the Patient Quit Smoking/Using Tobacco: december 2013 - Immunization History Most Recent Influenza Vaccination: 2016 Most Recent Tetanus Shot: 2010 Vaccination Up to Date: Yes Review of Systems All Other Systems Reviewed And Are Negative: Yes Constitutional: Positive: Negative Skin: Positive: Negative Eyes: Positive: Negative ENT: Positive: Other - SEE HPI Respiratory: Positive: Negative Cardiovascular: Positive: Negative Gastrointestinal: Positive: Negative Motor: Positive: Negative Neurovascular: Positive: Negative Musculoskeletal: Positive: Negative Neurological: Positive: Negative Psychological: Positive: Negative Is Patient Immunocompromised?: No Physical Exam Triage Information Reviewed: Yes Completion Of Physical Exam Limited Due To: Other - NO RESPIRATORY DISTRESS. VOICE IS SLIGHTLY ALTERED FROM NORMAL Appearance: Well-Appearing, No Pain Distress, Well-Nourished Vital Signs: Initial Vital Signs Temp 97.6 F 04/28/18 07:13 Pulse 61 04/28/18 07:13 Resp 14 04/28/18 07:13 BP 120/71 04/28/18 07:13 Pulse Ox 99 04/28/18 07:13 Vital Signs Reviewed: Yes Eye Exam: Normal Eyes: Positive: Conjunctiva Clear ENT: Positive: Other - LEFT SIDE OF TONGUE IS SWOLLEN MORE THAN THE RIGHT. OROPHARYNX PARTIALLY OCCULUDED. Neck exam: Normal Neck: Positive: Supple Respiratory: Positive: Lungs clear, Normal breath sounds, No respiratory distress Cardiovascular: Positive: RRR Musculoskeletal Exam: Normal Musculoskeletal: Positive: Strength Intact, ROM Intact Neurological Exam: Normal Neurological: Positive: Alert, Muscle Tone Normal Psychological Exam: Normal Psychological: Positive: Age Appropriate Behavior Skin Exam: Normal Allergic Reaction Course/Dx - Course Course Of Treatment: IV was placed and the patient was given Benadryl 50 mg, Pepcid 40 mg, and Solu-Medrol 125 Mg IV. Patient maintained his airway in the clinic. He was transferred to the emergency department by [facility]. - Differential Dx/Diagnosis Provider Diagnosis: Angioedema Discharge - Sign-Out/Discharge Documenting (check all that apply): Patient Departure All imaging exams completed and their final reports reviewed: No Studies - Discharge Plan Condition: Guarded Disposition: TRANS HIGHER LVL OF CARE FAC Referrals: Carroll Pollard MD [Primary Care Provider] - - Billing Disposition and Condition Condition: GUARDED Disposition: Trans Higher Lvl of Care Fac
[2018-04-28 08:04] VITALS: BP 122/75
== END 2018-04-28 07:55 | disposition short-term general hospital (02) ==
LOC: UCEAST 07:09
DX: T78.3XXA Angioneurotic edema, initial encounter (principal); I10 Essential (primary) hypertension; Z94.0 Kidney transplant status; Z87.891 Personal history of nicotine dependence
CPT/HCPCS: 96374; 96375; 99213; G0463; J1200; J2930

== ENCOUNTER 2018-04-28 08:15 | Emergency (ER) | payer BC ==
--- NOTE | 2018-04-28 08:38 | ED ---
Skin Complaint - HPI Summary HPI Summary: Patient is a 47 y/o M presenting [facility] with complaints of tongue swelling. 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 He states that Sx onset around two hours ago today. Patient also notes difficulty swallowing but denies SOB, difficulty breathing, throat tightness, rash, swelling elsewhere, and chest pain. Patient is on 20 mg Lisinopril BID. Hx of kidney transplant in 2009. Dr. Sorto is local sand mixer operator, Dr. Mcdaniel is transplant doctor. On triage, pain is denied, nothing is noted to aggravate/alleviate Sx. Home medications, allergies, and nurse's note are reviewed. - History of Current Complaint Stated Complaint: TONGUE SWELLING Hx Obtained From: Patient Onset/Duration: Started Hours Ago - two hours ago, Still Present Skin Exposure Onset/Duration: Hours Ago - two hours ago Timing: Constant, Lasting Hours - two hours ago Current Severity: None - pain denied Pain Intensity: 0 Pain Scale Used: 0-10 Numeric - 0/10 Skin Location: Other: - tongue Character: Swelling Aggravating Symptom(s): Nothing Alleviating Symptom(s): Nothing Associated Signs & Symptoms: Negative - Allergy/Home Medications Allergies/Adverse Reactions: Allergies Allergy/AdvReac Type Severity Reaction Status Date / Time No Known Allergies Allergy Verified 04/28/18 07:16 PMH/Surg Hx/FS Hx/Imm Hx Endocrine/Hematology History: Reports: Hx Anemia Denies: Hx Anticoagulant Therapy, Hx Blood Disorders, Hx Blood Transfusions, Hx Bone Marrow Disease, Hx Diabetes, Hx Systemic Lupus Erythematosus, Hx Sickle Cell Disease, Hx Thyroid Disease, Hx Unexplained Bleeding Cardiovascular History: Reports: Hx Hypercholesterolemia, Hx Hypotension, Hx Hypertension Denies: Hx Aneurysm, Hx Angina, Hx Angioplasty, Hx Auto Implanted Cardiovert Defib, Hx Cardiac Arrest, Hx Cardiomegaly, Hx Congenital Heart Disease, Hx Congestive Heart Failure, Hx Coronary Artery Disease, Hx Deep Vein Thrombosis, Hx Pacemaker/ICD, Hx Peripheral Vascular Disease, Hx Rheumatic Fever, Hx Syncope , Hx Valvular Heart Disease, Other Cardiovascular Problems/Disorders Respiratory History: Reports: Hx Seasonal Allergies Denies: Hx Asthma, Hx Chronic Bronchitis, Hx Chronic Obstructive Pulmonary Disease (COPD), Hx Cystic Fibrosis, Hx Lung Cancer, Hx Pleural Effusion, Hx Pneumonia, Hx Pulmonary Edema, Hx Pulmonary Embolism, Hx Sleep Apnea, Other Respiratory Problems/Disorders GI History: Denies: Hx Cirrhosis, Hx Crohn's Disease, Hx Diverticulosis, Hx Gall Bladder Disease, Hx Gastroesophageal Reflux Disease, Hx Gastrointestinal Bleed, Hx Hiatal Hernia, Hx Irritable Bowel, Hx Jaundice, Hx Obstructive Bowel, Hx Ileostomy, Hx Pyloric Stenosis, Hx Ulcer, Other GI Disorders History: Reports: Hx Benign Prostatic Hyperplasia, Hx Chronic Renal Failure, Hx Dialysis, Hx Kidney Infection, Hx Kidney Stones, 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; dialysis in 2007; dec 2009 right transplant, Other Problems/Disorders - peritonitis Denies: Hx Acute Renal Failure Musculoskeletal History: Reports: Hx Scoliosis Denies: Hx Arthritis, Hx Rheumatoid Arthritis, Hx Back Problems, Hx Bursitis , Hx Congenital Bone Abnormalities, Hx Fibromyalgia, Hx Gout, Hx Orthopedic Injury, Hx Osteoporosis, Hx Tendonitis, Other Musculoskeletal History Sensory History: Reports: Hx Contacts or Glasses, Hx Vision Problem, Other Sensory Impairments - tinnitus Denies: Hx Cataracts, Hx Eye Injury, Hx Eye Prosthesis, Hx Glaucoma, Hx Macular Degeneration, Hx Deafness, Hx Hearing Aid, Hx Hearing Problem Opthamlomology History: Reports: Hx Contacts or Glasses, Hx Vision Problem, Other Sensory Impairments - tinnitus Denies: Hx Cataracts, Hx Eye Injury, Hx Eye Prosthesis, Hx Glaucoma, Hx Macular Degeneration Neurological History: Denies: Hx Dementia, Hx Developmental Delay, Hx Headaches, Hx Migraine, Hx Seizures, Hx Spinal Cord Injury, Hx Transient Ischemic Attacks (TIA), Other Neuro Impairments/Disorders Psychiatric History: Reports: Hx Anxiety, Hx Depression Denies: Hx Attention Deficit Hyperactivity Disorder, Hx Eating Disorder, Hx Panic Disorder, Hx Post Traumatic Stress Disorder, Hx Inpatient Treatment, Hx Community Mental Health Tx, Hx Schizophrenia, Hx Bipolar Disorder, Hx Suicide Attempt, Hx Substance Abuse, Other Psychiatric Issues/Disorders - Cancer History Hx Chemotherapy: No Hx Radiation Therapy: No - Surgical History Surgery Procedure, Year, and Place: kidney transplant, 2009. Fistula, July 2008. Hemo-catheter, January 2008. Peritoneal catheter January 2008. Kidney biopsy 2006. Hx Anesthesia Reactions: No - Immunization History Date of Tetanus Vaccine: utd 2010 Infectious Disease History: No Infectious Disease History: Reports: Hx Shingles Denies: Hx Clostridium Difficile, Hx Hepatitis, Hx Human Immunodeficiency Virus (HIV), Hx Tuberculosis, History Other Infectious Disease, Traveled Outside the [place] in Last 30 Days - Family History Known Family History: Positive: Hypertension Negative: Renal Disease, Blood Disorder - Social History Alcohol Use: Occasionally Alcohol Amount: 5-7 DRINKS/WEEK Substance Use Type: Reports: Marijuana Substance Use Comment - Amount & Last Used: occasionally Smoking Status (MU): Former Smoker Type: Cigarettes Amount Used/How Often: 5-7 cig/ day Have You Smoked in the Last Year: No Review of Systems Positive: Other - POSITIVE - DIFFICULTY SWALLOWING; NEGATIVE - THROAT TIGHTNESS Negative: Chest Pain Positive: Other - NEGATIVE - DIFFICULTY BREATHING . Negative: Shortness Of Breath Positive: Other - TONGUE SWELLING, NO OTHER SWELLING Negative: Rash All Other Systems Reviewed And Are Negative: Yes Physical Exam - Summary Physical Exam Summary: Appearance: Well appearing, no pain distress Skin: warm, dry, reflects adequate perfusion Head/face: normal Eyes: EOMI, TARIQ ENT: mucous membranes moist; unilateral angioedema of left tongue Neck: supple, non-tender Respiratory: CTA, breath sounds present Cardiovascular: RRR, pulses symmetrical Abdomen: non-tender, soft Bowel Sounds: present Musculoskeletal: normal, strength/ROM intact Neuro: normal, sensory motor intact, A&Ox3 Triage Information Reviewed: Yes Vital Signs On Initial Exam: Initial Vitals Temp Pulse Resp BP Pulse Ox 97.5 F 56 16 126/81 98 04/28/18 08:24 04/28/18 08:24 04/28/18 08:24 04/28/18 08:24 04/28/18 08:24 Vital Signs Reviewed: Yes Diagnostics - Vital Signs Vital Signs Temp Pulse Resp BP Pulse Ox 04/28/18 08:24 97.5 F 56 16 126/81 98 - Laboratory Lab Statement: Any lab studies that have been ordered have been reviewed, and results considered in the medical decision making process. Re-Evaluation - Re-Evaluation First Eval Re-Evaluation Time: 10:14 Change: Unchanged Comment: Attempted to call Dr. Mcdaniel's office, Dr. Mcdaniel did not call back. Patient will be discharged to home, he is advised to follow up with Dr. Mcdaniel for medication changes. He is agreeable with this. Course/Dx - Course Course Of Treatment: Nurse's notes reviewed. The patient is stable here with left sided tongue swelling that did not change throughout his course. He is on lisinopril at a high dose. He is a renal transplant patient. I called his renal transplant team to inform them that he would be taken off the lisinopril in favor of losartan. I was unable to speak to the physician but he will call the patient back later today. No affect of epinephrine, antiallergy treatments. - Differential Diagnoses - Skin Complaint Differential Diagnoses: Other - Anaphylaxis, angioedema, drug reaction - Diagnoses Provider Diagnoses: TANESHA inhibitor-aggravated angioedema, History of renal transplant Discharge - Sign-Out/Discharge Documenting (check all that apply): Patient Departure - discharge - Discharge Plan Condition: Improved Disposition: HOME Prescriptions: Losartan TAB* [Cozaar TAB*] 25 mg PO BID #60 tab Patient Education Materials: Angioedema (ED) Referrals: Carroll Pollard MD [Primary Care Provider] - Additional Instructions: Discontinue lisinopril. Follow up with your varnish mixer here locally and with her transplant team. Return if worse, new symptoms, difficulty swallowing/ breathing, or other concerns. Transplant team should call you this morning regarding medication changes. - Billing Disposition and Condition Condition: IMPROVED Disposition: Home - Attestation Statements Document Initiated by Tom: Yes Documenting Scribe: HENOK COOL Provider For Whom Tom is Documenting (Include Credential): BETO GARCIA MD Scribe Attestation: I, HENOK COOL , scribed for BETO GARCIA MD on 04/28/18 at 1435. Scribe Documentation Reviewed: Yes Provider Attestation: The documentation as recorded by the HENOK remy accurately reflects the service I personally performed and the decisions made by me, BETO GARCIA MD Status of Scribe Document: Viewed
[2018-04-28 10:43] VITALS: BP 113/72
== END 2018-04-28 10:41 | disposition home or self-care (01) ==
LOC: ED 08:15
DX: T78.3XXA Angioneurotic edema, initial encounter (principal); Z94.0 Kidney transplant status; R13.10 Dysphagia, unspecified; Z87.891 Personal history of nicotine dependence
CPT/HCPCS: 99282